=== PATIENT | male | born 1990 ===

== ENCOUNTER 2016-10-14 21:02 | Emergency (ER) | payer SELFPAY ==
[~2016-10-14] VITALS: Ht 180.3 cm; Wt 77.0 kg
[2016-10-14 21:04] VITALS: BP 122/77; PULSE 93; RESP 16; TEMP 98.8; O2SAT 98
--- NOTE | 2016-10-14 22:32 | PD ---
Physical Exam Time Seen by Provider: 22:32 Narrative 26 y/o male here with nasal congestion, sore throat for 2 days. Vital signs reviewed. Seen at triage desk. Awaiting bed placement. Data Data Last Documented VS Vital Signs Date Time Temp Pulse Resp B/P Pulse Ox O2 Delivery O2 Flow Rate FiO2 10/14/16 21:04 98.8 93 16 122/77 98 Room Air [facility] Medical Record Reviewed: Yes Supervised Visit with EMMY: Jose Freitas Oct 14, 2016 22:32
== END 2016-10-15 02:00 | disposition left against medical advice (07) ==
LOC: NED 21:02
DX: R09.81 Nasal congestion (principal); J02.9 Acute pharyngitis, unspecified; Z53.21 Procedure and treatment not carried out due to patient leaving prior to being seen by health care provider
CPT/HCPCS: 99281